=== PATIENT | male | born 1990 | race Caucasian/White ===

== ENCOUNTER 2021-12-06 12:46 | Emergency (ER) | payer SELFPAY ==
--- NOTE | 2021-12-06 12:59 | PC.NURSE ---
Pt left without being triaged. He wants to call his insurance and check his benefits before being seen.
== END 2021-12-06 12:55 | disposition left against medical advice (07) ==
PROVIDERS: Emergency Provider Internal Medicine Hematology & Oncology
DX: Z53.21 Procedure and treatment not carried out due to patient leaving prior to being seen by health care provider (principal)
CPT/HCPCS: 99199